=== PATIENT | male | born 2000 | race Caucasian/White ===

== ENCOUNTER 2023-06-09 19:47 | Emergency (ER) | payer OTHER, SELFPAY ==
--- NOTE | ~2023-06-09 | CT_ITS ---
CT of the Abdomen and Pelvis: Indication: Abdominal pain Technique: 2.5 mm axial scans were obtained through the abdomen and pelvis following intravenous adm inistration of 100 cc of Omnipaque 350. Dose reduction technique was used on this scan by utilizing a utomated exposure control and iterative reconstruction technique. The dose-length product (DLP) was 2 37.51 mGy-cm. Findings: Scans through the lung bases are unremarkable. The liver, spleen, pancreas, gallbladder, adrenals and kidneys are within normal limits. No evidence of aortic aneurysm. No lymphadenopathy. No bowel obstruction. Probable under distention of descending/sigmoid colon rather than pathologic wa ll thickening. No abscess or free air. Images through the pelvis were performed. Urinary bladder unremarkable. No pelvic mass seen. No ascites. Impression: No definite abnormality seen. Probable under distention of descending/sigmoid colon rather than patho logic wall thickening. Correlate for any possibility of infectious/inflammatory colitis. Reviewed, dictated and finalized at [facility]. ULAR SAW FILER Impression: No definite abnormality seen. Probable under distention of descending/sigmoid c olon rather than pathologic wall thickening. Correlate for any possibility of i nfectious/inflammatory colitis.
--- NOTE | ~2023-06-09 | XR_ITS ---
Clinical Indication: Chest pain PA and lateral views of the chest: Comparison: None Findings: The lungs are clear, without evidence of focal consolidation or pleural effusion. Cardiome diastinal silhouette is within normal limits. Bones and soft tissues are unremarkable. Impression: Normal chest. Reviewed, dictated and finalized at location . WRAPPER Impression: Normal chest.
[2023-06-09 19:48] VITALS: BP 122/75; PULSE 123; RESP 14; TEMP 36.4; O2SAT 100
--- NOTE | 2023-06-10 01:46 | ECG_ITS ---
Measurements Intervals [place] Rate: 53 P: 72 FL: 156 QRS: 70 QRSD: 98 T: 48 QT: 430 QTc: 404 Interpretive Statements SINUS BRADYCARDIA WITH MARKED SINUS ARRHYTHMIA POSSIBLE LEFT ATRIAL ENLARGEMENT INCOMPLETE RIGHT BUNDLE BRANCH BLOCK DELAYED PRECORDIAL R/S TRANSITION BASELINE ARTIFACT- V6 BORDERLINE ECG NO PREVIOUS ECG AVAILABLE FOR COMPARISON Electronically Signed On 06-10-2023 7:57:18 AUDIO ENGINEER by Jerome Vasquez D.O.
--- NOTE | 2023-06-10 01:47 | ED.ABDPAIN ---
HPI - Abdominal Pain General Chief Complaint: Abdominal Pain <Teri Nicole PA-C - Last Filed: 06/10/23 04:13> Stated Complaint: LUQ pain <Teri Nicole PA-C - Last Filed: 06/10/23 04:13> Time Seen by Provider: 06/10/23 01:16 <Teri Nicole PA-C - Last Filed: 06/10/23 04:13> History of Present Illness HPI narrative: 22-year-old male reports for evaluation for left upper quadrant abdominal pain that started today. Patient states on 06/01/2024, it began developing URI symptoms consisting of cough, congestion and sore throat. States his your eye symptoms have mostly resolved, however he still has a persistent cough and sore throat. He is reporting today because he developed left lower quadrant abdominal pain. States he was dry heaving when he came to the ER. He denies current nausea. Last bowel movement was at 1:00 p.m. today, states it was an episode of diarrhea. He denies melena, hematochezia, mucus in his stool, chest pain. patient states he did have fevers up to 100 when he had his UR symptoms, however has not had a fever in 4 days. <REESE Thakur Last Filed: 06/10/23 04:13> Related Data Allergies/Adverse Reactions: Allergies Allergy/AdvReac Type Severity Reaction Status Date / Time No Known Allergies Allergy Verified 06/09/23 23:44 <Teri Nicole PA-C - Last Filed: 06/10/23 04:13> Review of Systems Review of Systems: CONSTITUTIONAL: Denies fever, chills, or sweats. EYES: Denies visual changes, redness, or discharge. ENT: see HPI CARDIOVASCULAR: Denies chest pain, palpitations, or edema. RESPIRATORY: see HPI GASTROINTESTINAL: See HPI GENITOURINARY: Denies dysuria or hematuria. SKIN: Denies rash or itching. MUSCULOSKELETAL: Denies back pain, joint pain, or myalgia. NEUROLOGIC: Denies headache, numbness, or weakness. PSYCHIATRIC: Denies anxiety or depression. <Teri Nicole PA-C - Last Filed: 06/10/23 04:13> PMFSH Past Medical History Medical History: Medical History Allergies Anxiety <Teri Nicole PA-C - Last Filed: 06/10/23 04:13> Family History Family History: Family History Father Hypertension Grandparent Heart disease Glaucoma Hypertension Thyroid disease <Teri Nicole PA-C - Last Filed: 06/10/23 04:13> Social History Social History: Social History Tobacco type: smokeless tobacco Additional smoking assessment comments: Vaping started 2018 Alcohol intake: current <Teri Nicole PA-C - Last Filed: 06/10/23 04:13> Exam Narrative: GENERAL: Well-appearing, well-nourished, and in no acute distress. patient resting comfortably in exam bed. He is pleasant and conversational HEAD: Normocephalic, atraumatic. EYES: PERRLA and EOMI. ENT: Nares clear, no rhinorrhea or epistaxis. Mucous membranes moist. posterior pharynx with erythema. No tonsillar hypertrophy or exudates. Uvula is midline. Bilateral TMs are schwartz nonbulging, normal canals. NECK: Supple. CHEST: Clear to auscultation. No respiratory distress. HEART: Regular rate and rhythm. No murmur heard. Normal peripheral pulses. ABDOMEN: Normoactive bowel sounds. Abdomen soft mild tenderness in the left upper quadrant. No guarding, rebound or rigidity. No CVA tenderness. EXTREMITIES: Normal range of motion. No edema. SKIN: Warm, dry, no rash. NEURO: No focal deficits. Alert and oriented x3 <Teri Nicole PA-C - Last Filed: 06/10/23 04:13> Course ROUSTABOUT CREW LEADER/PA Physician Supervision For this patient encounter, I reviewed the ROUSTABOUT CREW LEADER or PA documentation, treatment plan, and medical decision making and I had [id number] time with this patient. I performed all aspects of the MDM as documented. <Josr Guerra DO - Last Filed: 06/10/23 07:31> Vital Signs Vit
[2023-06-10] MEDS: SODIUM CHLORIDE 0.9% IV 1,000 ML 999 ML IV CONT (02:22)
[2023-06-10] MEDS: KETOROLAC 30 MG/ML VIAL (*BKC) IV PUSH (02:23)
[2023-06-10 02:27] LABS: Basophils Percent Auto 0.4 % (0.2-1.2); Hematocrit 51.7 % (42.0-52.0); Hemoglobin 17.6 g/dL (14.0-18.0); Immature Granulocyte Absolute 0.02 K/mm3 (0.00-0.031); Immature Granulocyte Percent A 0.3 % (0-0.5); Lymphocytes Absolute Auto 1.47 K/mm3 (0.9-3.2); Lymphocytes Percent Auto 21.7 % (18.3-44.2); Mean Corpuscular Hemoglobin 29.5 pg (26-34); Mean Corpuscular Volume 86.7 fl (80-100); Mean Platelet Volume 9.5 fl (7.4-10.4); Monocytes Absolute Auto 0.4 K/mm3 (0.1-0.6); Monocytes Percent Auto 5.5 % (2.6-8.5); Neutrophils Absolute Auto 4.9 K/mm3 (1.3-6.7); Neutrophils Percent Auto 72.1 % (45.5-73.1); Platelet Count Result 208 k/mm3 (150-375); Red Blood Count 5.96 M/mm3 (4.6-6.20); Red Cell Distribution Width 13.1 % (11.5-14.5); White Blood Count 6.8 K/mm3 (4.5-10.0)
[2023-06-10 02:44] LABS: Alanine Aminotransferase 24 U/L (6-50); Albumin Level 4.9 g/dL (3.5-5.1); Alkaline Phosphatase 68 U/L (38-126); Anion Gap 13 mmol/L (8-16); Aspartate Amino Transferase 27 U/L (17-59); Bilirubin,Total 1.5 mg/dL (0.2-1.3); Blood Urea Nitrogen 16 mg/dL (9-20); Carbon Dioxide 26 mmol/L (22-30); Chloride 103 mmol/L (98-107); Estimated CRCL calculation 77 ml/min; Estimated Glomerular Filt Rate > 60; Glucose 111 mg/dL (65-110); Lipase 103 U/L (23-300); Potassium 4.3 mmol/L (3.4-5.0); Sodium 142 mmol/L (137-145)
[2023-06-10 02:49] LABS: Strep Group A RT-PCR NOT DETECTED (Negative)
[2023-06-10 02:52] LABS: Appearance Urine Clear (Clear); Bacteria Urine None Seen /hpf; Bilirubin Urine 1+ (Negative); Blood Urine Negative (Negative); Color Urine Dark Yellow (Yellow); Glucose Urine UA Negative (Negative); Ketones Urine 2+ mg/dL (Negative); Leukocyte Esterase Ur Negative LEU/UL (Negative); Mucus Urine Present /lpf; Need Manual Microscopic Reviewed; Nitrate Urine Negative (Negative); Protein Urine 1+ mg/dL (Negative); RBC Urine 0-2 /hpf (0-2); Squamous Epithelial Cell Urine None seen /hpf (Few); WBC Urine 0-5 /hpf; pH Urine 5.5 (5.0-9.0)
[2023-06-10 02:53] LABS: Add Urine Microscopic? YES
[2023-06-10 02:56] LABS: Monoscreen Negative (Negative); Negative Monotest Control Negative (Negative); Positive Monotest Control Positive (Positive)
[2023-06-10 03:01] LABS: Influenza A QL RT-PCR Negative (Negative); Influenza B QL RT-PCR Positive (Negative); RSV RNA, RT-PCR Negative (Negative); SARS-CoV-2 RNA PCR Negative (Negative)
[2023-06-10 03:43] VITALS: BP 122/58; PULSE 58; RESP 16; O2SAT 97
[2023-06-10 07:12] VITALS: BP 114/64; PULSE 50; RESP 18; TEMP 36.9; O2SAT 97
== END 2023-06-10 07:53 | disposition home or self-care (01) ==
PROVIDERS: Physician Assistant; Emergency Provider Student in an Organized Health Care Education/Training Program
DX: J10.1 Influenza due to other identified influenza virus with other respiratory manifestations (principal); R10.12 Left upper quadrant pain; Z20.822 Contact with and (suspected) exposure to COVID-19; F17.220 Nicotine dependence, chewing tobacco, uncomplicated; F17.290 Nicotine dependence, other tobacco product, uncomplicated
CPT/HCPCS: 36415; 71046; 74177; 80053; 81001; 83690; 85025; 86308; 87637; 87651; 93005; 96361; 96374; 99284; J1885; J7030; Q9967